=== PATIENT | female | born 1980 | race Caucasian/White ===

== ENCOUNTER 2021-09-12 11:08 | Emergency (ER) | payer OTHER, SELFPAY ==
--- NOTE | ~2021-09-12 | CT_ITS ---
EXAMINATION: CT ABDOMEN AND PELVIS WITHOUT CONTRAST CLINICAL INFORMATION: Right flank pain and abdominal pain. COMPARISON: None TECHNIQUE: Multidetector volumetric imaging was performed from the superior aspect of the liver through the pubic symphysis. Sagittal and coronal reformatted images were obtained on the technologist's workstation. This CT examination was performed using dose optimization techniques as appropriate, variously including the following: *Automated exposure control *Adjustment of mA and/or kV according to patient size (this includes techniques or standardized protocols for targeted exams where dose is matched to indication/reason for exam; i.e. extremities or head) *Use of iterative reconstruction technique DLP: 293 mGy-cm FINDINGS: LUNG BASES: Normal. No pulmonary consolidation or pleural effusion at either lung base. LIVER: The liver has normal size, shape, and attenuation. No evidence of liver mass. GALLBLADDER AND BILIARY TREE: Gallbladder is without radiopaque stones, wall thickening or pericholecystic fluid. No dilated bile ducts. PANCREAS: Normal. No edema, pancreatic ductal dilatation or mass. SPLEEN: Normal. ADRENAL GLANDS: Normal. KIDNEYS AND URETERS: The kidneys have normal size and cortical thickness. No perinephric fluid collection. No urolithiasis or hydroureteronephrosis. BLADDER: Normal. No calculi or wall thickening. BOWEL AND PERITONEUM: Stomach is unremarkable. No dilated loops of bowel. The appendix is normal. No overt bowel wall thickening or mesenteric fat stranding. No ascites or pneumoperitoneum. ABDOMINAL WALL: There is minimal protrusion of fat into the umbilicus. No significant abdominal wall hernia. VASCULATURE: Unremarkable. LYMPH NODES: No pathologic sized lymph nodes in the abdomen or pelvis. No inguinal lymphadenopathy. PELVIC VISCERA: The anteflexed, anteverted uterus has a normal appearance. No adnexal mass. No pelvic free fluid. 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 The lowest lumbar vertebra has a hypertrophied transverse process that articulates with the sacrum (Castellvi type 2a configuration). There is callus formation around an old fracture of the right lateral eighth rib. CT/CT abdomen pelvis wo con IMPRESSION: * No nephrolithiasis or hydronephrosis. * The appendix is normal. No evidence of inflammatory change or obstruction along the gastrointestinal tract. * No acute imaging abnormalities in the abdomen or pelvis.
[2021-09-12 11:42] VITALS: BP 147/96; PULSE 108; RESP 16; TEMP 37.1; O2SAT 98
--- NOTE | 2021-09-12 11:45 | ED.ABDPAIN ---
HPI - Abdominal Pain General Chief Complaint: Abdominal Pain Stated Complaint: rt side abd pain Time Seen by Provider: 09/12/21 11:45 Source: patient Mode of arrival: ambulatory Limitations: no limitations History of Present Illness HPI narrative: right sided abdominal pain for 30 minutes, sudden and sharp. patient had diaphoresis, no fever, no vomiting. patient is on control and gets her period every three months. 2 months ago patient had severe bleeding and pain that she did not have prior. Patient denies frequency or hematuria MD elicited complaint: abdominal pain and flank pain Onset (ago): minute(s) Pain Consistency: constant and now resolved Location: RLQ Severity: severe Quality: sharp Radiation: R flank Associated symptoms: nausea Related Data Previous Rx's Medication Instructions Recorded naproxen 500 mg tablet (Naprosyn) 500 mg PO BID #20 tab 09/12/21 Allergies Allergy/AdvReac Type Severity Reaction Status Date / Time No Known Allergies Allergy Verified 09/12/21 11:46 Review of Systems Constitutional: Reports no additional constitutional complaints Eyes: Reports no additional eye complaints Denies dizziness Cardiovascular: Reports no additional cardiovascular complaints Respiratory: Reports as per HPI Gastrointestinal: Reports no additional gastrointestinal complaints Genitourinary: Reports no additional female genitourinary complaints Musculoskeletal: Reports no additional musculoskeletal complaints Skin/Breast: Denies rash Reports system reviewed and no additional complaints, except as documented, Denies dizziness and Denies Sensory deficit (Neuro) Psychiatric: Denies anxiety Physical Exam Vital Signs: Vital Signs: Last Vital Signs Temp 98.6 F 09/12/21 15:24 Pulse 96 09/12/21 15:24 Resp 15 09/12/21 15:24 BP 157/86 H 09/12/21 15:24 Pulse Ox 100 09/12/21 15:24 Body Mass Index 21.9 Const: General: healthy appearing Nutritional Appearance: average body habitus Orientation/consciousness: oriented to person and patient oriented x3 Limitations: no limitations HENMT: Head: Yes normal to inspection Ears: external ears normal General nose exam: Normal external nose present Mouth: Normal oral and palatal mucosa present and oropharynx normal Throat: Yes posterior oropharynx normal Eyes: General: appearance normal, both eyes and all related structures Neck: Other: supple Neck: Yes normal visual inspection Chest: Chest palpation & inspection: normal inspection of the chest Resp: Auscultation: clear to auscultation bilaterally Cardio: Jugular venous distension: no JVD Rate: regular rate Rhythm: regular rhythm Heart sounds: S1 normal heart sound present and S2 normal heart sound present GI: Inspection: Yes normal to inspection Palpation (GI): Soft to palpation, nontender and No hepatosplenomegaly present Auscultation: normal bowel sounds : General: Yes no CVA tenderness Back/Spine/Pelvis: Back: no CVA tenderness Skin: General skin exam: no rashes or lesions noted Neuro: General: oriented to person and patient oriented x3 Cranial nerves: Yes CN's II-XII intact bilaterally Motor exam (neuro): 5/5 motor strength present throughout Sensory Exam: No Sensory deficit (Neuro) Extrem: General: Yes normal to inspection Psych: Appearance: grossly normal Course Reevaluation(s) Reevaluation #1: CT was negative for stone, despite hematuria, physical exam completely benign, will dc on NSAIDs Time: 15:35 MDM - Abdominal Pain Lab Data Result diagrams: 09/12/21 12:07 09/12/21 12:07 Labs: Lab Results 09/12/21 09/12/21 09/12/21 Range/Units 12:07 12:07 12:16 WBC 9.6 (4.8-10.8) X10*3/uL RBC 3.95 L (4.20-5.50) X10*6/uL Hgb 13.5 (12.0-16.0) g/dl Hct 38.5 (37.0-47.0) % MCV 97.5 (80.0-98.0) fL MCH 34.2 H (27.0-33.0) pg MCHC 35.1 H (31.0-35.0) g/dl RDW 12.9 (11.0-16.0) % Plt Count 261 (160-400) X10*3/uL MPV 9.1 L (9.4-12.3) fL Immature Gran % (Auto) 0.5 H (0.0-0.4) % Neut % (Auto) 79.8 H (45-73) % Lymph % (Auto) 11.6 L (20-40) % Cannon % (Auto) 7.2 (2-11) % Eos % (Auto) 0.4 (0-4) % Baso % (Auto) 0.5 (0-2) % Lymph # (Auto) 1.1 L (1.2-4.9) X10*3/uL Cannon # (Auto) 0.7 (0.1-1.2) X10*3/uL Eos # (Auto) 0.0 (0.0-0.4) X10*3/uL Baso # (Auto) 0.1 (0.0-0.2) X10*3/uL Abs Immat Gran (auto) 0.05 H (0.00-0.03) X10*3/uL Absolute Neuts (auto) 7.7 (2.0-8.3) x10*3/uL Absolute Nucleated RBC 0.000 (0.0-0.012) X10*3/uL Nucleated RBC % (auto) 0.0 (0.0-0.2) /100WBC Sodium 137 (135-145) mmol/L Potassium 3.8 (3.3-5.1) mmol/L Chloride 104 (96-108) mmol/L Carbon Dioxide 21 L (22-29) mmol/L Anion Gap 16 (12-20) BUN 14 (9-16) mg/dL Creatinine 0.79 (0.5-1.4) mg/dL Estim Creat Clear Calc 74.8 Estimated GFR > 60 Random Glucose 86 (60-115) mg/dL Calcium 9.2 (8.4-10.2) mg/dL Urine Color YELLOW Urine Appearance HAZY Urine pH 5.5 (5.0-8.0) Ur Specific [place] 1.010 (1.005-1.025) Urine Protein NEG (NEG-TRACE) MG/DL Urine Glucose (UA) NEG (NEG) MG/DL Urine Ketones 5 (NEG) MG/DL Urine Blood 3+ H (NEG) Urine Nitrite NEG (NEG) Ur Leukocyte Esterase NEG (NEG) Urine RBC 50-75 H (0) /HPF Urine WBC 1-4 (0-4) /HPF Ur Squamous Epith Cells TRACE /LPF Urine Bacteria NONE /LPF Urine Test (NEGATIVE) 09/12/21 Range/Units 12:16 WBC (4.8-10.8) X10*3/uL RBC (4.20-5.50) X10*6/uL Hgb (12.0-16.0) g/dl Hct (37.0-47.0) % MCV (80.0-98.0) fL MCH (27.0-33.0) pg MCHC (31.0-35.0) g/dl RDW (11.0-16.0) % Plt Count (160-400) X10*3/uL MPV (9.4-12.3) fL Immature Gran % (Auto) (0.0-0.4) % Neut % (Auto) (45-73) % Lymph % (Auto) (20-40) % Cannon % (Auto) (2-11) % Eos % (Auto) (0-4) % Baso % (Auto) (0-2) % Lymph # (Auto) (1.2-4.9) X10*3/uL [place] # (Auto) (0.1-1.2) X10*3/uL Eos # (Auto) (0.0-0.4) X10*3/uL Baso # (Auto) (0.0-0.2) X10*3/uL Abs Immat Gran (auto) (0.00-0.03) X10*3/uL Absolute Neuts (auto) (2.0-8.3) x10*3/uL Absolute Nucleated RBC (0.0-0.012) X10*3/uL Nucleated RBC % (auto) (0.0-0.2) /100WBC Sodium (135-145) mmol/L Potassium (3.3-5.1) mmol/L Chloride (96-108) mmol/L Carbon Dioxide (22-29) mmol/L Anion Gap (12-20) BUN (9-16) mg/dL Creatinine (0.5-1.4) mg/dL Estim Creat Clear Calc Estimated GFR Random Glucose (60-115) mg/dL Calcium (8.4-10.2) mg/dL Urine Color Urine Appearance Urine pH (5.0-8.0) Ur Specific [place] (1.005-1.025) Urine Protein (NEG-TRACE) MG/DL Urine Glucose (UA) (NEG) MG/DL Urine Ketones (NEG) MG/DL Urine Blood (NEG) Urine Nitrite (NEG) Ur Leukocyte Esterase (NEG) Urine RBC (0) /HPF Urine WBC (0-4) /HPF Ur Squamous Epith Cells /LPF Urine Bacteria /LPF Urine Test NEGATIVE (NEGATIVE) Imaging Data CT scan - abdomen: Radiologist's impression: IMPRESSION: *? No nephrolithiasis or hydronephrosis. *? The appendix is normal. No evidence of inflammatory change or obstruction along the gastrointestinal tract. *? No acute imaging abnormalities in the abdomen or pelvis. ? Discharge Plan Discharge Clinical Impression: Abdominal pain Qualifiers: Abdominal location: right lower quadrant Qualified Code(s): R10.31 - Right lower quadrant pain Patient Disposition: Home, Self-Care Instructions: Abdominal Pain (ED) Prescriptions: New naproxen [Naprosyn] 500 mg tablet 500 mg PO BID Qty: 20 RF: 0 Referrals: Yayo Castillo MD [Primary Care Provider] - 1 week [facility] [place] Past Medical History Medical History (Updated 09/12/21 @ 15:35 by Israel Doyle MD) No known health problems Social History Social History Advance Directives: No Advance Directives Information Provided: No
[2021-09-12 11:47] VITALS: BP 147/96; PULSE 100; RESP 18; TEMP 37.1; O2SAT 98; BMI 21.9
[2021-09-12 12:12] LABS: MANUAL DIFF FLAG NO
[2021-09-12 12:15] LABS: Basophils Absolute Auto 0.1 X10*3/uL (0.0-0.2); Basophils Percent Auto 0.5 % (0-2); Eosinophils Percent Auto 0.4 % (0-4); Hematocrit 38.5 % (37.0-47.0); Hemoglobin 13.5 g/dl (12.0-16.0); Imm Gran Abs Auto 0.05 X10*3/uL (0.00-0.03); Imm Gran Pct Auto 0.5 % (0.0-0.4); Lymphocytes Absolute Auto 1.1 X10*3/uL (1.2-4.9); Lymphocytes Percent Auto 11.6 % (20-40); Mean Corpuscular HGB Conc 35.1 g/dl (31.0-35.0); Mean Corpuscular Hemoglobin 34.2 pg (27.0-33.0); Mean Corpuscular Volume 97.5 fL (80.0-98.0); Mean Platelet Volume 9.1 fL (9.4-12.3); Monocytes Absolute Auto 0.7 X10*3/uL (0.1-1.2); Monocytes Percent Auto 7.2 % (2-11); Neutrophils Absolute Auto 7.7 x10*3/uL (2.0-8.3); Neutrophils Percent Auto 79.8 % (45-73); Platelet Count 261 X10*3/uL (160-400); Red Blood Count 3.95 X10*6/uL (4.20-5.50); Red Cell Distribution Width 12.9 % (11.0-16.0); White Blood Count 9.6 X10*3/uL (4.8-10.8)
[2021-09-12 12:23] LABS: Appearance Urine HAZY; Color Urine YELLOW; Glucose Urine UA NEG (NEG); Leukocyte Esterase Urine NEG (NEG); Nitrite Urine NEG (NEG); PH 5.5 (5.0-8.0); UACC Culture Trigger NO; Urine Blood 3+ (NEG); Urine Ketones 5 MG/DL (NEG); Urine Protein NEG (NEG-TRACE)
[2021-09-12 12:26] LABS: UPreg QC Valid YES; Urine Pregnancy NEGATIVE (NEGATIVE)
[2021-09-12 12:32] LABS: Anion Gap 16 (12-20); Blood Urea Nitrogen 14 mg/dL (9-16); Calcium 9.2 mg/dL (8.4-10.2); Carbon Dioxide 21 mmol/L (22-29); Chloride 104 mmol/L (96-108); Creatinine Clr Calc Pharmacy 74.8; Estimated Glomerular Filt Rate > 60; Glucose Random 86 mg/dL (60-115); Potassium 3.8 mmol/L (3.3-5.1); Sodium 137 mmol/L (135-145)
[2021-09-12 12:34] LABS: RBC Urine 50-75 /HPF (0); Squamous Epithelial Cell Urine TRACE /LPF
[2021-09-12] MEDS: Ketorolac Tromethamine 15 MG/ML VIAL 30 MG IVPUSH (12:36)
--- NOTE | 2021-09-12 12:38 | PC.NURSE ---
nad. no pain, skin wpd,
[2021-09-12 15:24] VITALS: BP 157/86; PULSE 96; RESP 15; TEMP 37; O2SAT 100
== END 2021-09-12 15:47 | disposition home or self-care (01) ==
PROVIDERS: Emergency Provider Emergency Medicine; PCP Internal Medicine
DX: R10.31 Right lower quadrant pain (principal)
CPT/HCPCS: 36415; 74176; 80048; 81001; 81025; 85025; 96374; 99284; J1885

== ENCOUNTER 2022-02-13 12:38 | Emergency (ER) | payer OTHER, SELFPAY ==
--- NOTE | 2022-02-13 15:17 | PC.NURSE ---
no response at this time
== END 2022-02-13 16:39 | disposition left against medical advice (07) ==
PROVIDERS: Emergency Provider Emergency Medicine
DX: R09.1 Pleurisy (principal)